=== PATIENT | female | born 2000 | race Caucasian/White ===

== ENCOUNTER → 2023-10-27 | Outpatient (CLI) | payer BC, SELFPAY ==
[2023-10-27 16:59] LABS: Absolute Lymphocyte Count 2.43 X10^3/uL (0.83-4.51); Absolute Neutrophil Count 4.4 X10^3/uL (2.0-7.7); Basophil# 0.04 X10^3/uL; Basophil% 0.5 % (0-1); Eosinophil# 0.11 X10^3/uL; Eosinophils% 1.4 % (0-5); Hemoglobin 13.9 g/dL (12.0-15.0); Lymphocyte # 2.43 X10^3/ul (0.83-4.51); Mean Corp Hgb Conc 32.3 g/dL (32-36); Mean Corpuscular Hgb 30.5 pg (27.0-32.0); Mean Corpuscular Volume 94.5 fL (81-99); Mean Platelet Vol. 10.8 fl (6.2-12.0); Monocyte% 7.9 % (0-10); NRBC Flagged by Analyzer 0 % (0-5); Neutrophil # 4.39 X10^3/uL (2.7-7.7); Neutrophil % 57.9 % (47-70); Platelet Count 283 K/mm3 (150-450); RBC Distribution Width CV 12.2 % (11.6-14.6); RBC Distribution Width SD 42.5 fl (35.1-43.9); Red Blood Count 4.55 M/mm3 (4.2-5.4); White Blood Count 7.6 K/mm3 (4.4-11.0)
[2023-10-27 17:13] LABS: Color, Urine Yellow (Yellow); Glucose, Dipstick Normal (Normal); Ketone-Dipstick Negative (Negative); Leukocyte Esterase-Dipstick 100 /ul (Negative); Nitrite-Dipstick Negative (Negative); Occult Blood-Urine Negative /ul (Negative); Protein-Dipstick Negative (Negative); Specific Gravity, Urine 1.005 (1.002-1.030); Urine Bilirubin Dipstick Negative (Negative); Urine Clarity Clear (Clear); Urine Urobilinogen Normal (Normal)
[2023-10-27 17:28] LABS: Erythrocyte Sedimentation Rate 3 mm/hr (0-30)
[2023-10-27 17:30] LABS: Protein, Urine (Random) < 6.0 mg/dL (<11.9)
[2023-10-27 17:55] LABS: ALB/GLOB Ratio 1.1 RATIO (0.9-2.4); AST(SGOT) 23 U/L (15-37); Alanine Aminotransfer ALT/SGPT 22 U/L (13-56); Albumin, Serum 4.3 g/dL (3.2-5.0); Alkaline Phosphatase 76 U/L (45-117); Anion Gap 5 (5-15); BUN 9 mg/dL (7-18); BUN/Creat Ratio 12.1 RATIO (10-20); CRP < 2.90 mg/L (0.0-3.0); Calcium,Total 8.9 mg/dL (8.5-10.1); Chloride 104 mmol/L (98-107); Creatinine, Serum 0.74 mg/dL (0.55-1.02); EST Glomerular Filtration Rate 101 mL/min (>60); Est Glom Filt Rate - Afr Amer 123 mL/min (>60); Globulin 3.8 g/dL (2.2-4.2); Glucose 100 mg/dL (74-106); Protein, Total 8.1 g/dL (6.4-8.2); Sodium Level 138 mmol/L (136-145)
== END | disposition home or self-care (01) ==
PROVIDERS: PCP Family Medicine; Referring Provider Internal Medicine Rheumatology; Visit Provider Internal Medicine Rheumatology
DX: R53.83 Other fatigue (principal); D68.01 Von Willebrand disease, type 1; R76.8 Other specified abnormal immunological findings in serum; G43.909 Migraine, unspecified, not intractable, without status migrainosus; F41.9 Anxiety disorder, unspecified
CPT/HCPCS: 36415; 80053; 81002; 82570; 84156; 85025; 85652; 86140

== ENCOUNTER 2024-05-30 13:05 | Emergency (ER) | payer BC, SELFPAY ==
[2024-05-30 13:06] VITALS: BP 116/68; PULSE 101; RESP 16; TEMP 36.9; O2SAT 100; BMI 28.3
--- NOTE | 2024-05-30 14:01 | CT_ITS ---
INDICATION: Headache w. Von Willebrands EXAMINATION: CT BRAIN - CT Head or Brain W/O Contrast Injection TECHNIQUE: Multiple axial images were obtained of the head without intravenous contrast. The protocol utilizes one or more of the following dose reduction techniques: automated exposure control, adjustment of mA and/or kV according to patient size,and/or use of iterative reconstruction technique. IV Contrast dosage and agent: None. RADIATION DOSAGE (If Supplied By Facility): CTDIvol = ( 47.06 ) mGy, DLP = ( 890.33 ) mGycm COMPARISON: No relevant prior comparison study available FINDINGS: BRAIN PARENCHYMA: No intra- or extra-axial hemorrhage. No evidence of acute infarct. No intracranial mass or mass effect. There is preservation of the [place]/white matter interface. Posterior fossa structures are unremarkable. CSF SPACES: Appropriate for age. No hydrocephalus. Basal cisterns are patent. CALVARIUM, SKULL BASE, PARANASAL SINUSES AND MASTOID AIR CELLS: Clear. No discrete lytic or blastic abnormalities. ORBITS: Both globes, extraocular muscles, optic nerves and retrobulbar fat appear unremarkable. ASPECTS Score for Acute Strokes: 10 CT/Brain/Head without Contrast IMPRESSION: No acute intracranial process. Electronically Signed: Aurelia Painting MD at 14:44 EDT ,
--- NOTE | 2024-05-30 14:03 | EX.ED.VIS.HA ---
HPI History of Present Illness Chief Complaint: Headache Detail of Chief Complaint: Right-sided headache with photophobia and nausea. Informant: patient Onset/Context/Timing Onset: Yesterday and Hours Context: Gradual Timing: Continuous Quality -Headache: Positive for Similar Prior Headaches and Sharp Current Severity: Moderate Maximum Severity: Moderate Associated Symptoms/Injury Associated Symptoms: Positive for Nausea; Negative for Vomiting Injury - TRUJILLO: Negative for Direct Trauma, Fall or Assault Narrative Narrative: 23-year-old female with a history of anemia and von Willebrand's disease. Also states she has migraine headaches but has never been worked up for them. States yesterday around 3 PM she started having a headache right sided behind her eye. In the right side of her head. Denies any fall injury or trauma. Associated bilateral photophobia. Nausea without vomiting or diarrhea. No fever. No sinus drainage. No neck pain. No trouble using her arms or legs. Prior similar symptoms: Yes Recent Illness/Hospitalization: No PFSH PFSH Home Medications ?Medication ?Instructions ?Recorded ?Last Taken ?Type sumatriptan succinate 50 mg tablet See Rx Instructions PO .COMPLEX 05/30/24 Unknown Rx (Imitrex) #10 tabs Allergy/AdvReac Type Severity Reaction Status Date / Time Penicillins Allergy Hives Verified 05/30/24 13:08 NSAIDS (Non-Steroidal AdvReac OTHER Verified 05/30/24 13:08 Anti-Inflamma Social History Smoking Status: Never smoker ROS ROS ED ROS Narrative Headache. Nausea. Photophobia. Constitutional Constitutional ED: Denies chills or fever(s) Eyes Eyes: Denies blurry vision ENT ENT ED: Denies ear pain Cardiovascular Cardiovascular: Denies chest pain Respiratory/Chest Respiratory/Chest: Denies cough or dyspnea Gastrointestinal Gastrointestinal: Reports nausea; Denies abdominal pain, constipation, diarrhea, melena or vomiting Genitourinary Genitourinary ED: Denies dysuria or hematuria Musculoskeletal Musculoskeletal: Denies arthralgias, back pain or neck pain Integumentary Denies abscess Neurologic Neurologic: Reports headache(s); Denies paresthesias or weakness Psychiatric Psychiatric: Denies anxiety Endocrine Endocrinology: Denies polydipsia Hematologic/Lymphatic Hematologic/Lymphatic: Denies lymphadenopathy Allergic/Immunologic Allergic/Immunologic ED: Denies mouth swelling, tongue swelling or urticaria EXAM Physical Exam Narrative Exam Narrative: 23-year-old female no acute distress. Is photophobic and has her eyes covered. Vital signs are stable afebrile. H EENT exam pupils round react light. Extra motions are intact. No facial droop. No trauma. Posterior pharynx unremarkable. Moist mucous membranes. TMs normal. Neck nontender no lymphadenopathy. No meningismus. Able to easily touch her chin to chest. Lungs clear to auscultation. Heart regular rhythm no murmur. Abdomen soft nontender. Moving all 4 extremities. 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 Dorsi plantarflexion intact. Neurologic exam normal. NIH 0. Fingertip to nose [id number] within normal limits. Normal speech. Const Vital Signs: 05/30/24 13:06 05/30/24 15:06 Temperature 98.4 F Temperature Source Temporal Pulse Rate 101 H 84 Respiratory Rate 16 16 Blood Pressure 116/68 114/74 Blood Pressure Mean 84 87 Pulse Ox 100 98 Oxygen Delivery Method Room Air Room Air Positive well nourished and well developed; Negative for obese, cachectic, contractures or unkempt General Appearance ED: well developed and NAD; Negative for unkempt, cachectic, contractures, cyanotic or diaphoretic Nutritional Appearance: Negative for cachectic or obese HEENT Reports normocephalic, TM's clear and moist mucous membranes atraumatic; Negative for trauma, tenderness, temporal artery tenderness or vesicular rash Face and Sinus: Negative for sinus tenderness Tympanic Membrane ED: Yes TM's clear Eyes PERRL and EOMs intact bilaterally General Eye ED: Negative for pale conjunctiva or scleral icterus Neck no lymphadenopathy, supple, no meningeal signs and no JVD General: Negative for tenderness Resp normal respiratory effort and clear to auscultation bilaterally Cardio regular rate, regular rhythm, S1 normal heart sound, S2 normal heart sound and no murmurs GI non-tender and non-distended Palpation: soft; Negative for firm, tender or guarding Back/Spine no CVA tenderness Extremity normal to inspection and full ROM General Extremety ED: Negative for edema or tenderness General Extremity: Negative for edema Neuro oriented x3 and CN's II-XII intact bilaterally Sensorium / Orientation: awake, alert, oriented to person, oriented to place and oriented to time Coordination / Balance: [id number] test normal and [id number] test normal Speech: speech normal Motor Exam: strength 5/5 throughout Psych mental status grossly normal Appearance: Negative for unkempt Attitude: No agitated Mood & Affect: Negative for depressed, anxious or tearful Skin Lesions: no lesions Rashes: no rashes MDM MDM MDM Narrative Medical decision making narrative: 23-year-old female with a headache. History of von Willebrand's. History of migraines but she is never been worked up formed. Clinically does not have a sinus infection. Does not have any reproducible forehead or facial pain. There is no transillumination. She is having no significant purulent nasal discharge. Neurologic exam is normal. She be treated with IV fluids Compazine and Benadryl. Due to her bleeding disorder I will obtain a CAT scan of her head. This will evaluate her for possible bleed which I do not think she has because she has normal neurologic exam and also with sinusitis which again I do not think she has. Repeat exam patient is doing well at 4:20 PM. Neurologic exam remains normal. We discussed all of her test results. Her CAT scan and blood work was fine. She was treated with morphine and it did improve her symptoms. She is feeling better. She is comfortably discharged home. She will be written a prescription for Imitrex for migraine headaches. History & Record Review Discussion w/independent historian: Patient Additional record(s) reviewed:: Prior inpatient record, Prior outpatient record, Prior ED visit and Prior labs Lab Data Attestation: I reviewed the patient's lab results. Lab results narrative: CBC normal. White count 6. H&H of 14.5 and 43. Platelets 250. Labs: Laboratory Results - last 24 hr 05/30/24 14:10 WBC 6.4 RBC 4.83 Hgb 14.5 Hct 43.7 MCV 90.5 MCH 30.0 MCHC 33.2 RDW Std Deviation 40.6 RDW Coeff of Shun 12.3 Plt Count 250 MPV 10.1 Immature Gran % (Auto) 0.300 Neut % (Auto) 61.8 Lymph % (Auto) 27.2 Cook % (Auto) 9.1 Eos % (Auto) 1.3 Baso % (Auto) 0.3 Absolute Neuts (auto) 3.9 Absolute Lymphs (auto) 1.73 Nucleated RBC % 0 Radiography Diagnostic Testing: Clinical Impression(s) from Imaging Studies Brain CT 05/30/24 14:01 IMPRESSION: No acute intracranial process. Electronically Signed: Aurelia Painting MD at 14:44 EDT , Discharge Plan Triage Chief Complaint: Headache ED Provider: Guero Yuan Dx/Rx/DC Orders Clinical Impression: Migraine headache, Hx of von Willebrand's disease Instructions: ED, Migraine (Classical) Prescriptions: New sumatriptan succinate [Imitrex] 50 mg tablet See Rx Instructions .ROUTE .COMPLEX Qty: 10 0RF Rx Instructions: take 1 tab at onset of headache; if no relief may repeat 1 tab after at least 2 hrs; max = 4 tabs/24 hr Primary Care Provider: Kenyatta Lassiter Referrals: Kenyatta Lassiter, LIVIER [Primary Care Provider] - 3-5 Days if not improving Activity Restrictions/Additional Instructions: Plenty of fluids and rest. Tylenol and Motrin for pain. Caffeinated beverage. Follow-up with your primary care provider as needed. I wrote you a medication called Imitrex. It usually works well for migraine headaches. If you get a recurrent headache take it within the first few hours the headache and usually will resolve it. Print Language: [place] Disposition Disposition: Home, Self Care
[2024-05-30] MEDS: proCHLORPERazine 10 MG/2 ML Vial IV (14:14)
[2024-05-30] MEDS: 0.9% Normal Saline (1000mL) 1,000 ML 1000 ML IV (14:14)
[2024-05-30] MEDS: DiphenhydrAMINE 50 MG/ML Syringe IV (14:14)
[2024-05-30 14:17] LABS: Absolute Lymphocyte Count 1.73 X10^3/uL (0.83-4.51); Absolute Neutrophil Count 3.9 X10^3/uL (2.0-7.7); Basophil# 0.02 X10^3/uL; Basophil% 0.3 % (0-1); Eosinophil# 0.08 X10^3/uL; Eosinophils% 1.3 % (0-5); Hematocrit 43.7 % (37-47); Hemoglobin 14.5 g/dL (12.0-15.0); Lymphocyte # 1.73 X10^3/ul (0.83-4.51); Lymphocyte % 27.2 % (19-41); Mean Corp Hgb Conc 33.2 g/dL (32-36); Mean Corpuscular Volume 90.5 fL (81-99); Mean Platelet Vol. 10.1 fl (6.2-12.0); Monocyte# 0.58 X10^3/uL; Monocyte% 9.1 % (0-10); NRBC Flagged by Analyzer 0 % (0-5); Neutrophil # 3.93 X10^3/uL (2.7-7.7); Neutrophil % 61.8 % (47-70); Platelet Count 250 K/mm3 (150-450); RBC Distribution Width CV 12.3 % (11.6-14.6); RBC Distribution Width SD 40.6 fl (35.1-43.9); Red Blood Count 4.83 M/mm3 (4.2-5.4); White Blood Count 6.4 K/mm3 (4.4-11.0)
[2024-05-30 15:06] VITALS: BP 114/74; PULSE 84; RESP 16; O2SAT 98
[2024-05-30] MEDS: morphine 8 MG/ML Syringe 6 MG IV (15:27)
[2024-05-30 16:29] VITALS: BP 114/74; PULSE 84; RESP 16; TEMP 36.8; O2SAT 98
== END 2024-05-30 16:29 | disposition home or self-care (01) ==
PROVIDERS: Emergency Provider Emergency Medicine; PCP Family Medicine; Visit Provider Emergency Medicine
DX: G43.909 Migraine, unspecified, not intractable, without status migrainosus (principal); D68.00 Von Willebrand disease, unspecified
CPT/HCPCS: 70450; 85025; 96361; 96374; 96375; 99283; J7030; A4216

== ENCOUNTER → 2024-06-27 | Outpatient (CLI) | payer BC, SELFPAY ==
[2024-06-27 08:32] LABS: Absolute Lymphocyte Count 1.66 X10^3/uL (0.83-4.51); Absolute Neutrophil Count 4.1 X10^3/uL (2.0-7.7); Basophil# 0.02 X10^3/uL; Basophil% 0.3 % (0-1); Eosinophil# 0.11 X10^3/uL; Eosinophils% 1.7 % (0-5); Hematocrit 44.9 % (37-47); Hemoglobin 14.7 g/dL (12.0-15.0); Lymphocyte # 1.66 X10^3/ul (0.83-4.51); Lymphocyte % 25.5 % (19-41); Mean Corp Hgb Conc 32.7 g/dL (32-36); Mean Corpuscular Hgb 30.8 pg (27.0-32.0); Mean Corpuscular Volume 93.9 fL (81-99); Mean Platelet Vol. 10.3 fl (6.2-12.0); Monocyte# 0.56 X10^3/uL; Monocyte% 8.6 % (0-10); NRBC Flagged by Analyzer 0 % (0-5); Neutrophil # 4.12 X10^3/uL (2.7-7.7); Neutrophil % 63.4 % (47-70); Platelet Count 225 K/mm3 (150-450); RBC Distribution Width CV 12.5 % (11.6-14.6); RBC Distribution Width SD 43.5 fl (35.1-43.9); Red Blood Count 4.78 M/mm3 (4.2-5.4); White Blood Count 6.5 K/mm3 (4.4-11.0)
[2024-06-27 08:54] LABS: Erythrocyte Sedimentation Rate 3 mm/hr (0-30)
[2024-06-27 09:00] LABS: AST(SGOT) 12 U/L (15-37); Alanine Aminotransfer ALT/SGPT 14 U/L (13-56); Albumin, Serum 4.1 g/dL (3.2-5.0); Alkaline Phosphatase 69 U/L (45-117); Anion Gap 7 (5-15); BUN 10 mg/dL (7-18); BUN/Creat Ratio 11.1 RATIO (10-20); CRP < 2.90 mg/L (0.0-3.0); Calcium,Total 9.3 mg/dL (8.5-10.1); Chloride 107 mmol/L (98-107); EST Glomerular Filtration Rate 80 mL/min (>60); Est Glom Filt Rate - Afr Amer 97 mL/min (>60); Glucose 99 mg/dL (74-106); Potassium 4.1 mmol/L (3.5-5.1); Protein, Total 8.1 g/dL (6.4-8.2); Sodium Level 139 mmol/L (136-145)
== END | disposition home or self-care (01) ==
LOC: LAB 08:08
PROVIDERS: PCP Family Medicine; Referring Provider Internal Medicine Rheumatology; Visit Provider Internal Medicine Rheumatology
DX: R53.83 Other fatigue (principal); R76.8 Other specified abnormal immunological findings in serum
CPT/HCPCS: 36415; 80053; 85025; 85652; 86140